=== PATIENT | female | born 1940 | race Caucasian/White ===

== ENCOUNTER 2023-02-26 14:36 | Outpatient (CLI) | payer MEDICARE | END 2023-02-26 14:37 | disposition home or self-care (01) | LOC: CSHMRI 14:36 | PROVIDERS: ATTEND Family Medicine | DX: M47.26 Other spondylosis with radiculopathy, lumbar region (principal); Z98.890 Other specified postprocedural states | CPT/HCPCS: 72100; 72148 ==